=== PATIENT | male | born 1935 | race Caucasian/White ===

== ENCOUNTER 2018-03-24 00:19 | Emergency (ER) | payer MEDICAID ==
[~2018-03-24] VITALS: Ht 157.5 cm; Wt 71.7 kg
[~2018-03-24 00:19] MED LIST: TAMS-14 PO
[2018-03-24 00:20] VITALS: Ht 157.5 cm; Wt 71.7 kg
[2018-03-24] MEDS ORDERED: ALBUTEROL 0.083% (NEB) 2.5 MG/3 ML AMP NEB STA (00:39)
[2018-03-24] MEDS ORDERED: IPRATROPIUM (NEB) 0.5 MG/2.5 ML AMP NEB STA (00:39)
--- NOTE | 2018-03-24 00:58 | ERD ---
ER Documentation Chief Complaint Chief Complaint FEVER X2 WEEKS, COUGH X1 WEEK, CHEST WALL PAIN SINCE YESTERDAY W/ COUGH HPI 82-year-old gentleman, smoking history who presents to the emergency room with approximately 2 weeks of cough and subjective fevers. The patient's cough is dry nonproductive but persistent. Primary care provider attempted amoxicillin with mild rash and was self discontinued. He describes some mild shortness of breath and chest wall pain with coughing. No pleuritic pain no fevers today. He denies any hematemesis. No chest pressure or exertional symptoms. ROS All systems reviewed and are negative except as per history of present illness. Medications Home Meds Active Scripts Levofloxacin* (Levaquin*) 750 Mg Tablet, 750 MG PO DAILY for 5 Days, TAB Prov:AMANDA ALCALA MD 03/24/18 Prednisone* (Prednisone*) 20 Mg Tab, 40 MG PO DAILY for 5 Days, TAB Prov:AMANDA ALCALA MD 03/24/18 Albuterol Sulfate* (Ventolin HFA*) 18 Gm Hfa.aer.ad, 2 PUFF INHALATION Q4H, #1 INHALER Prov:AMANDA ALCALA MD 03/24/18 Reported Medications Tamsulosin Hcl* (Flomax*) 0.4 Mg Cap.sr.24h, 0.4 MG PO DAILY 03/26/12 Allergies Allergies: Coded Allergies: No Known Allergy (Unverified , 03/26/12) PMhx/Soc History of Surgery: No Anesthesia Reaction: No Hx Neurological Disorder: No Hx Respiratory Disorders: No Hx Cardiac Disorders: No Hx Psychiatric Problems: No Hx Miscellaneous Medical Probl: Yes (enlarged prostate) Hx Alcohol Use: No Hx Substance Use: No Hx Tobacco Use: Yes (SOMETIMES) FmHx Family History: No diabetes Physical Exam Vitals Vital Signs Date Temp Pulse Resp B/P (MAP) Pulse Ox O2 O2 Flow FiO2 Time Delivery Rate 03/24/18 69 20 96 21 00:46 03/24/18 61 22 128/64 96 Room Air 00:40 (85) 03/24/18 97.1 78 21 91/51 (64) 95 00:20 Physical Exam General: Well developed, well nourished, no acute distress Head: Normocephalic, atraumatic. Eyes: Pupils equally reactive, EOM intact ENT: Moist mucous membranes Neck: Supple, no lymphadenopathy Respiratory: Scant wheezing diffusely but good aeration, no respiratory distress Cardiovascular: RRR, no murmurs, rubs, or gallops Abdominal: Soft, non-tender, non-distended, no peritoneal signs : Deferred MSK: No edema, no unilateral swelling, 5/5 strength Neurologic: Alert and oriented, moving all extremities, normal speech, no focal weakness, no cerebellar signs Skin: No rash Psych: Normal mood Result Diagram: 03/24/185103/24/1851 Results 24 hrs Laboratory Tests Test 03/24/18 00:52 White Blood Count 8.3 10^3/ul Red Blood Count 4.26 10^6/ul Hemoglobin 12.3 g/dl Hematocrit 37.5 % Mean Corpuscular Volume 88.0 fl Mean Corpuscular Hemoglobin 28.9 pg Mean Corpuscular Hemoglobin Concent 32.8 g/dl Red Cell Distribution Width 14.0 % Platelet Count 182 10^3/UL Mean Platelet Volume 12.2 fl Immature Granulocytes % 2.200 % Neutrophils % 65.2 % Lymphocytes % 19.0 % Monocytes % 11.9 % Eosinophils % 1.2 % Basophils % 0.5 % Nucleated Red Blood Cells % 0.0 /100WBC Immature Granulocytes # 0.180 10^3/ul Neutrophils # 5.4 10^3/ul Lymphocytes # 1.6 10^3/ul Monocytes # 1.0 10^3/ul Eosinophils # 0.1 10^3/ul Basophils # 0.0 10^3/ul Nucleated Red Blood Cells # 0.0 10^3/ul Sodium Level 141 mmol/L Potassium Level 4.2 mmol/L Chloride Level 105 mmol/L Carbon Dioxide Level 25 mmol/L Anion Gap 11 Blood Urea Nitrogen 13 mg/dl Creatinine 1.22 mg/dl Est Glomerular Filtrat Rate mL/min mL/min Glucose Level 126 mg/dl Calcium Level 8.8 mg/dl Current Medications Medications Dose Sig/Loretta Start Time Status Last (Trade) Ordered Route PRN Stop Time Admin Dose Reason Admin Albuterol 2.5 mg ONCE STAT 03/24/18 DC 03/24/18 (Proventil NEB 00:39 00:46 0.083% (Neb)) 03/24/18 00:40 Ipratropium 0.5 mg ONCE STAT 03/24/18 DC 03/24/18 [place] NEB 00:39 00:46 (Atrovent 03/24/18 00:40 0.02% (Neb)) Procedures/MDM EKG, MONITORS, & DIAGNOSTIC IMAGING: Chest x-ray: I reviewed and interpreted a 1 view of the chest Mediastinum: No enlargement Cardiac silhouette: No cardiomegaly Airspace: Clear lung bullock bilaterally without evidence of pneumothorax Bones: No evidence of fracture EKG: I reviewed and interpreted a 12-lead EKG. Rhythm: Normal sinus rhythm ST Changes: No contiguous ST segment elevations T waves: No contiguous T wave inversions Impression: [No evidence of acute cardiac ischemia] LAB INTERPRETATION: * No leukocytosis MEDICAL DECISION MAKING: The patient presents with cough, subjective fevers and wheezing for several weeks. He is a smoker. Likely underlying undiagnosed emphysema or COPD. The patient exhibits no signs or symptoms concerning for acute coronary syndrome or cardiac etiology. Low concern for commune acquired pneumonia though x-ray imaging and laboratory testing would be most appropriate. The patient will benefit from breathing treatment. If normal labs and chest x-ray consider treatment with a short course of steroids, breathing treatment and Levaquin for possible exacerbation of underlying COPD, emphysema. ER COURSE: * DuoNeb provided * Laboratory testing and diagnostic imaging is unrevealing. Again low concern for cardiac etiology. * Patient had improvement with breathing treatment. At this point I believe he can be safely discharged with outpatient treatment for likely COPD exacerbation. CONSULTATION: [None] DISPOSITION PLAN: The patient does not have an identifiable emergent medical condition that warrants inpatient hospitalization at this time. The patient is deemed safe for discharge with outpatient follow-up. We discussed follow up with the patient's primary care doctor within 24 to 48 hours as needed. We also discussed return to the emergency room for worsening symptoms or worsening condition. Outpatient referral: [None required] Discharge Medications: Levaquin, albuterol, prednisone Departure Diagnosis: Primary Impression: Lower respiratory tract infection Additional Impressions: Wheezing COPD exacerbation Condition: Stable AMANDA ALCALA MD Mar 24, 2018 00:58
[2018-03-24] MEDS ORDERED: LEVO750T25 PO (01:57)
[2018-03-24] MEDS ORDERED: ALBU18HF INHALATION (01:57)
[2018-03-24] MEDS ORDERED: PRED20TA PO (01:57)
[2018-03-24 02:27] VITALS: BP 120/78; PULSE 65; RESP 22
== END 2018-03-24 02:27 | disposition home or self-care (01) ==
LOC: E/R 00:19
DX: J22 Unspecified acute lower respiratory infection (principal); J44.1 Chronic obstructive pulmonary disease with (acute) exacerbation
CPT/HCPCS: 36415; 71045; 80048; 85025; 93005; 94664; Z7502; Z7610